=== PATIENT | male | born 1990 | race Caucasian/White ===

== ENCOUNTER 2023-05-10 20:33 | Emergency (ER) | payer OTHER ==
[~2023-05-10] VITALS: Ht 188 cm; Wt 100.0 kg
[2023-05-10 22:50] LABS: BASO % 0.3 % (0.0-2.0); EOS # 0.2 K/mm3 (0.0-0.7); EOS % 1.8 % (0.0-4.0); GRAN # 5.9 K/mm3 (1.4-6.5); HEMOGLOBIN 16.3 g/dl (13.5-18.0); LYMPH # 1.9 K/mm3 (1.2-3.4); LYMPH % 21.9 % (20.0-51.0); MEAN CELL VOLUME 80 fl (80.0-100.0); MEAN CORPUSCULAR HEMOGLOBIN 29 pg (27-31); MEAN CORPUSCULAR HGB CONC 36 g/dl (33.0-37.0); MEAN PLATELET VOLUME 10.7 fl (7.4-10.4); MONO # 0.7 K/mm3 (0.1-0.6); MONO % 7.8 % (1.7-9.3); PLATELET COUNT 177 K/mm3 (130-400); REDCELL DISTRIBUTION WIDTH-CV 12.4 % (11.5-14.5)
[2023-05-10 22:56] LABS: ALANINE AMINOTRANSFERASE 22 U/L (0-55); ALBUMIN 4.8 gm/dL (3.5-5.0); ALKALINE PHOSPHATASE 67 U/L (40-150); ANION GAP 12 mmol/L (7-16); AST,SGOT 20 U/L (5-34); BILIRUBIN,TOTAL 1.2 mg/dL (0.2-1.2); BLOOD UREA NITROGEN 11 mg/dL (9-21); CALCIUM 10.1 mg/dL (8.4-10.2); CARBON DIOXIDE 24 mmol/L (22-29); CHLORIDE 100 mmol/L (98-107); GLUCOSE 101 mg/dL (70-99); POTASSIUM 4.3 mmol/L (3.5-4.5); SODIUM 136 mmol/L (136-145); TOTAL PROTEIN 8.8 gm/dL (6.2-8.1)
[2023-05-10 22:59] LABS: ACETAMINOPHEN < 1.0 ug/mL (10-30); ALCOHOL(ethanol),MEDICAL < 10 mg/dL (0-10); SALICYLATE < 5.0 mg/dL (15.0-30.0)
[2023-05-10 23:29] LABS: COLLECTION METHOD CLEAN CATCH
[2023-05-10 23:37] LABS: SQUAMOUS EPITHELIAL None Seen /hpf (0-10); URINE BACTERIA None Seen /hpf (NONE SEEN); URINE RBC None Seen /hpf (0-2)
[2023-05-10 23:42] LABS: PH 6.5 (5.0-8.5); URINE APPEARANCE Clear (CLEAR/HAZY); URINE COLOR Yellow (YELLOW)
[2023-05-10 23:43] LABS: URINE BLOOD Negative (NEGATIVE); URINE GLUCOSE Negative (NEGATIVE); URINE KETONE TRACE (NEGATIVE); URINE NITRATE Negative (NEGATIVE); URINE PROTEIN(semi-quant) Negative (NEGATIVE)
[2023-05-10 23:44] LABS: TRICYCLIC ANTIDEPRESS URINE NEGATIVE
[2023-05-12 09:05] VITALS: TEMP 97.9
--- NOTE | 2023-05-12 10:34 | NUR ---
CHRIS met with pt and his GF @ the bedside this morning to facilitate pt's scheduled court hearing @ 10 am. Entered in zoom ID # and PC, gave pt IPAD when the hearing began. Pt participated in the 30 minute hearing without incident. No other concerns noted.
[2023-05-12] MEDS ORDERED: ZOLOFT 25MG25 MG PO (18:20)
[2023-05-12 18:49] VITALS: BP 121/81; PULSE 96
== END 2023-05-12 18:53 ==
LOC: COL.ER 20:33
PROVIDERS: Physician Assistant
DX: R45.851 Suicidal ideations (principal); F17.290 Nicotine dependence, other tobacco product, uncomplicated